=== PATIENT | male | born 1955 | race Caucasian/White ===

== ENCOUNTER 2016-06-11 14:34 | Inpatient (IN) | payer BC ==
--- NOTE | ~2016-06-11 | PN ---
Unit #: [id number] #: [id number] Patient: NINFA HO [id number] [facility] [address] [place] [address] [id number] MR#: [id number] NAME: NINFA HO. ROOM: 74 Age: 60 Sex: M Admission Date: 06/11/2016 : 1955 Attending Physician: Robyn Santana M.D. Admitting Physician: Robyn Santana M.D. Primary Care Physician: Primary Care Physician Halle SOL NOTES DATE OF SERVICE: 06/17/2016 SUBJECTIVE Mr. Ho is a 60-year-old white male with alcohol dependence and mood disorder, who was seen today and chart was reviewed, and case was discussed with the staff. He has been anxious, withdrawn, though has not shown any agitation, irritability, and has been cooperative with treatment recommendation and has been taking the medications and tolerating them fairly well with no reported side effects. MENTAL STATUS EXAMINATION An elderly white male who was casually dressed with fair personal hygiene, appears to be in no acute distress or discomfort. He was awake and alert with intact orientation. His mood was anxious with a congruent affect. He denies any suicidal or homicidal ideation. His insight and judgment remain slightly impaired. TREATMENT PLAN 1. We will continue him on his current medications and treatment protocol. We will monitor his response to medications and make further adjustments as needed. 2. We will continue to follow up. Dictated by... Keke De Santiago/demetrius TD: 06/17/2016 13:29 JOB #: [id number] RIKA PROGRESS NOTES Page 1 of 1 X Robyn Santana MD PROGRESS NOTE
--- NOTE | ~2016-06-11 | PA ---
Unit #: [id number] #: [id number] Patient: NINFA MAS [id number] [facility] [address] [place] [address] [id number] I MR#: [id number] NAME: NINFA MAS. ROOM: [facility] Age: 60 Sex: M Admission Date: 06/11/2016 : 1955 Date of Assessment: Attending Physician: Robyn Santana M.D. Admitting Physician: Robyn Santana M.D. Primary Care Physician: Primary Care Physician No PSYCHIATRIC ASSESSMENT DATE OF SERVICE 06/11/2016. IDENTIFYING DATA Mr. Mas is a 60-year-old single white male, who is a resident of [place], [place] and was self-referred to the hospital on a voluntary basis. CHIEF COMPLAINT "I need to detox from alcohol." HISTORY OF PRESENT ILLNESS Mr. Mas is a 60-year-old white male with a long history of alcohol dependence, who was self-referred to the hospital and stated that he wanted to get detox from alcohol and that he has been drinking a pint and several beers a day for many years with minimal period of sobriety. He reports his last drink was last night and reports having a tremor. Upon presentation, he had a blood alcohol level of 0.075. He does report increasing depression, anxiety, irritability, restlessness, significant consequences because of his addiction leading to increasing stressors and feelings of hopelessness and helplessness, but denies any suicidal ideations, intent, or plan. SUBSTANCE ABUSE HISTORY The patient reports alcohol to be his drug of choice and has been drinking since he was 17 years old and currently has been drinking a pint and several beers on a daily basis. He denies any other drug abuse. PAST PSYCHIATRIC HISTORY The patient has had a history of inpatient chemical dependency treatment at [facility] as well as [facility]. Review of the medical records indicate that currently he is not active in any treatment program, is not seeing a psychiatrist, is not taking any psychotropic medications. PAST MEDICAL HISTORY Hypertension. ALLERGIES No known medication allergies. PERSONAL AND SOCIAL HISTORY A 60-year-old white male who reports that he is single and unemployed, and lives alone and has poor social support system. Unit #: [id number] #: [id number] Patient: NINFA MAS MENTAL STATUS EXAMINATION An elderly white male, who was casually dressed with fair personal hygiene, appears to be in no acute distress or discomfort. He was awake and alert on interaction with intact orientation to time, place, and person. His mood was anxious and depressed with a congruent affect. Speech was slow and restricted in content. His thought processes were disorganized with some looseness of associations. He denies any suicidal or homicidal ideations, and also denies any auditory or visual hallucinations. His insight and judgment remain significantly impaired. DIAGNOSTIC IMPRESSION Psychiatric: Alcohol dependence, moderate and acute withdrawals; alcohol-induced mood disorder. Medical: Hypertension. Stressors: Moderate psychosocial stressors. TREATMENT PLAN 1. The patient has presented with a history of substance abuse and mood disorder, and has been decompensating and will need inpatient hospitalization for detoxification, safety, and stabilization. We will start him on detox protocol. We will closely monitor for any worsening withdrawal symptoms. 2. Supportive therapy was provided to the patient. 3. Safe, structured, and nourishing environment will be provided. ESTIMATED LENGTH OF STAY 4 to 5 days. ABILITY TO HELP SELF Limited. WILLINGNESS TO HELP SELF The patient appears to be willing to help self. STRENGTHS 1. Communicative. 2. Cooperative. PROBLEMS 1. Chronic dysphoric symptoms. 2. Chronic chemical dependency. 3. Poor social support system. DISCHARGE CRITERIA This will be contingent upon the patient's ability to go through detox without having any significant withdrawal symptoms and his ability to stay safe to himself, particularly after discharge from the hospital. Dictated by... Keke De Santiago/demetrius TD: 06/12/2016 06:43 JOB #: [id number] Unit #: [id number] #: [id number] Patient: NINFA MAS PSYCHIATRIC ASSESSMENT Page 1 of 1 X Robyn Santana MD PSYCHIATRIC ASSESSMENT
--- NOTE | ~2016-06-11 | PN ---
Unit #: [id number] #: [id number] Patient: NINFA HO [id number] [facility] [address] [place] [address] [id number] MR#: [id number] NAME: NINFA HO. ROOM: [facility] Age: 60 Sex: M Admission Date: 06/11/2016 : 1955 Attending Physician: Robyn Santana M.D. Admitting Physician: Robyn Santana M.D. Primary Care Physician: Primary Care Physician Halle MELÉNDEZ PROGRESS NOTES DATE 06/13/2016 DISCUSSION Mr. Ho is a 60-year-old white male with alcohol dependence and mood disorder who was seen today and chart was reviewed and case was discussed with the staff. He has been anxious, withdrawn and in acute delirium tremens and has been maintained on one-to-one level of precautions due to confusion and disorientation and constantly wandering, out of touch with reality and having significant difficulties following directions. Meanwhile, he has been taking medications and tolerating them fairly well with no reported side effects. MENTAL STATUS EXAMINATION An elderly white male who was casually dressed with fair personal hygiene and appears to be in no acute distress or discomfort. He was awake and alert with impaired attention and concentration. His mood was anxious with congruent affect. His speech is slow and restricted in content. He denies any suicidal or homicidal ideation. His insight and judgement remains significantly impaired. TREATMENT PLAN Will continue his current medications and level of precautions and will monitor his response to the medications and make further adjustments as needed. Dictated by... Keke De Santiago/yana TD: 06/13/2016 17:27 JOB #: [id number] Unit #: [id number] #: [id number] Patient: NINFA HO RIKA PROGRESS NOTES Page 1 of 1 X Robyn Santana MD PROGRESS NOTE
--- NOTE | ~2016-06-11 | HP ---
Unit #: [id number] #: [id number] Patient: NINFA MAS [id number] [place] [address] [id number] I MR#: [id number] NAME: NINFA MAS. ROOM: [facility] Age: 60 Sex: M Admission Date: 06/11/2016 : 1955 Attending Physician: Robyn Santana M.D. Admitting Physician: Robyn Santana M.D. Primary Care Physician: Primary Care Physician No HISTORY AND PHYSICAL HISTORY OF PRESENT ILLNESS Ninfa is a 60-year-old admitted to [facility] because of his abuse of alcohol. He is detoxing. PAST MEDICAL HISTORY 1. Long history of alcohol abuse. 2. High blood pressure. PAST SURGICAL HISTORY Nothing reported. ALLERGIES No known drug allergies SOCIAL HISTORY Smokes one pack per day. Drinks at least a pint, plus "several beers" on a daily basis. Denies illicit drug use. FAMILY HISTORY Medically noncontributory. REVIEW OF SYSTEMS CONSTITUTIONAL: No fever or chills. HEENT: Denies any sore throat, ear pain or runny nose. CARDIOVASCULAR: Denies chest pain, irregular heart rhythm or palpitations. CHEST: Denies shortness of breath or cough. No hemoptysis. GASTROINTESTINAL: Denies nausea, vomiting, diarrhea or chronic constipation. ENDOCRINE: Denies history of increased thirst or urination. No recent significant weight loss or gain. GENITOURINARY: Denies dysuria, frequency, or hematuria. SKIN: Denies any rashes. HEMATOLOGIC: Denies history of increased bleeding or bruising. MUSCULOSKELETAL: Denies any hot, swollen joints. No generalized muscle pain. NEUROLOGIC: Denies problems with vision or speech. No frequent, severe headaches. No numbness, tingling or weakness in any extremities. Denies loss of bladder or bowel control. CURRENT MEDICATIONS 1. Detox protocol 2. Hydrochlorothiazide 25 mg daily 3. Acupril 20 mg daily Unit #: [id number] #: [id number] Patient: NINFA MAS PHYSICAL EXAMINATION GENERAL: Alert, well-nourished, no apparent distress. VITAL SIGNS: Blood pressure 138/94, heart rate 80, respirations 16, temperature 98.6. WEIGHT: 156. HEIGHT: 5 feet 9 inches. SKIN: Warm and dry without rash or lesion. HEENT: Normocephalic. TMs not viewed. Oral and nasal passages clear. Conjunctivae clear. PERRLA. EOMs intact. NECK: Supple without lymphadenopathy or thyromegaly. HEART: Regular rate and rhythm without murmur. LUNGS: Clear. ABDOMEN: Soft, nontender. : Not done. EXTREMITIES: No evidence of cyanosis, clubbing or edema. Moves all without focal deficit. NEUROLOGICAL: Grossly within normal limits. Cranial Nerves: II: Visual freeman are intact. III, IV AND : Extraocular movements are intact. Pupils are equal, round and reactive to light. V: Facial sensation is grossly normal. VII: Facial movements and expression are normal. VIII: Auditory acuity grossly intact. IX, X: Uvula is midline. Phonation is normal. XI: Patient shrugs shoulders and turns head normally. XII: Tongue protrudes in the midline. Sensory and Motor Function: Sensory and motor sensation is grossly normal. Motor: moves all extremities well. Coordination: Gait is normal. Deep Tendon Reflexes: Intact. MEDICAL ASSESSMENT AND PLAN Psychiatric admission. RECOMMENDATIONS 1. Psychiatric, per psychiatrist. 2. Medical, I see no contraindications to participating in facility's activities. MEDICAL PROGNOSIS Good. MEDICAL CONDITION Stable. Dictated by... Thomas Rosa/josse TD: 06/12/2016 19:52 JOB #: [id number] Unit #: [id number] #: [id number] Patient: NINFA MAS HISTORY AND PHYSICAL Page 1 of 1 X Elba Velázquez HISTORY AND PHYSICAL
--- NOTE | ~2016-06-11 | PN ---
Unit #: [id number] #: [id number] Patient: NINFA HO [id number] [facility] [address] [place] [address] [id number] I MR#: [id number] NAME: NINFA HO. ROOM: 74 Age: 60 Sex: M Admission Date: 06/11/2016 : 1955 Attending Physician: Robyn Santana M.D. Admitting Physician: Robyn Santana M.D. Primary Care Physician: Primary Care Physician Halle MELÉNDEZ PROGRESS NOTES DATE June 16, 2016 DISCUSSION Mr. Ho is a 60-year-old white male, with alcohol dependence, who was seen today and chart was reviewed and the case was discussed with the staff. He remains anxious, withdrawn, and rather disorganized and unsteady on his feet as we tried to have him walk in front of me, he was wobbly and had some confusion and not knowing what he is going to do outside of here. Meanwhile, he has been taking the medications and tolerating them fairly well with no reported side effects. MENTAL STATUS EXAMINATION An elderly white male, who was casually dressed with fair personal hygiene and appears to be in no acute distress or discomfort. He was awake and alert with impaired attention and concentration. His mood is anxious with a congruent affect. He denies any suicidal or homicidal ideations. His insight and judgment remain slightly impaired. TREATMENT PLAN 1. We will continue him on his current medications and treatment protocol, and will monitor his response, and make further adjustments as needed. 2. We will continue to followup. Dictated by... Keke D eSantiago/john TD: 06/16/2016 09:25 JOB #: [id number] Unit #: [id number] #: [id number] Patient: NINFA HO PEALIANET PROGRESS NOTES Page 1 of 1 X Robyn Santana MD PROGRESS NOTE
--- NOTE | ~2016-06-11 | PN ---
Unit #: [id number] #: [id number] Patient: NINFA MAS [id number] [facility] [address] [place] [address] [id number] MR#: [id number] NAME: NINFA MAS. ROOM: 74 Age: 60 Sex: M Admission Date: 06/11/2016 : 1955 Attending Physician: Robyn Santana M.D. Admitting Physician: Robyn Santana M.D. Primary Care Physician: Primary Care Physician No RAMONACE PROGRESS NOTES DATE OF SERVICE 06/15/2016 DISCUSSION Mr. Mas is a 60-year-old white male who was seen today. Chart was reviewed and case was discussed with the staff. He remains anxious, withdrawn, and seclusive to himself, was going through detox and appears to be making some progress. However, still has been maintained on falls precautions due to the recurrent falls. MENTAL STATUS EXAMINATION An elderly white male who is casually dressed with fair personal hygiene, appears to be in no acute distress or discomfort. He was awake and alert on interaction with intact orientation. His mood is anxious with a congruent affect. He denies any suicidal or homicidal ideations. His insight and judgment remain slightly impaired. TREATMENT PLAN 1. We will continue him on his current medications and treatment protocol. We will monitor his response to the medications and make further adjustments as needed. 2. We will continue to follow up. Dictated by... Robyn Santana M.D. IAA/bzg TD: 06/15/2016 13:19 JOB #: [id number] [facility] PROGRESS NOTES Page 1 of 1 X Robyn Santana MD PROGRESS NOTE
--- NOTE | ~2016-06-11 | PN ---
Unit #: [id number] #: [id number] Patient: NINFA HO [id number] [facility] [address] [place] [address] [id number] MR#: [id number] NAME: NINFA HO. ROOM: 74 Age: 60 Sex: M Admission Date: 06/11/2016 : 1955 Attending Physician: Robyn Santana M.D. Admitting Physician: Robyn Santana M.D. Primary Care Physician: Primary Care Physician Halle SOL NOTES DATE 06/18/2016 DISCUSSION Mr. Ho is a 60-year-old, white male with alcohol dependence who was seen today and chart was reviewed and case was discussed with the staff. He has been anxious, withdrawn, seclusive to himself though appears to be doing somewhat better and has been to show clearing of his cognitive functioning and able to carry on better conversation. His blood workup shows elevated liver enzymes which is inconsistent with his alcoholic hepatitis. MENTAL STATUS EXAM An elderly white male who was casually dressed with fair personal hygiene, appears to be in no acute distress or discomfort. He was awake and alert on interaction with intact orientation. His mood was anxious with congruent affect. He denies any suicidal or homicidal ideation. His insight and judgement remains slightly impaired. TREATMENT PLAN 1. We will continue him on his current treatment protocol. We will monitor his response to the medication and make further adjustments as needed. 2. We will continue to follow up. Dictated by... Keke De Santiago/tyler TD: 06/19/2016 05:29 JOB #: [id number] Unit #: [id number] #: [id number] Patient: NINFA HO RIKA PROGRESS NOTES Page 1 of 1 X Robyn Santana MD PROGRESS NOTE
--- NOTE | ~2016-06-11 | DS ---
Unit #: [id number] #: [id number] [facility]: [facility] MAS [id number] [facility] [address] [place] [address] [id number] I MR#: [id number] NAME: NINFA MAS. ROOM: [facility] Age: 60 Sex: M Admission Date: 06/11/2016 : 1955 Discharge Date: 06/20/2016 Attending Physician: Robyn Santana M.D. Primary Care Physician: Primary Care Physician No DISCHARGE SUMMARY IDENTIFYING DATA Mr. Mas is a 60-year-old white male, who is a resident of [place], [place] and was self-referred to the hospital on a voluntary basis. DISCHARGE DIAGNOSES Psychiatric: Alcohol dependence, moderate, in acute withdrawals; alcohol-induced mood disorder. Medical: Hypertension. Stressors: Moderate psychosocial stressors. HISTORY OF PRESENT ILLNESS Please see initial psychiatric evaluation for details. PAST PSYCHIATRIC HISTORY Please see initial psychiatric evaluation for details. PAST MEDICAL HISTORY Please see initial psychiatric evaluation for details. HOSPITAL COURSE The patient was admitted to the adult chemical dependency unit at [facility] and was oriented to the hospital environment. Routine p.r.n. medications were initiated, and he was started back on his home medications and alcohol detox protocol was initiated as well. However, the patient did end up going into delirium tremens and had a rather complicated course of stay, and as such, medications were maintained and he was closely monitored. He was taking the medications regularly and was tolerating them fairly well and was unable to come out of the detox without any complications and was willing to continue treatment on an outpatient basis, and as such, it was decided that he will be discharged home and will continue treatment on an outpatient basis. DISCHARGE MEDICATIONS None. DISCHARGE CONDITION Stable. PROGNOSIS Fair. Dictated by... Robyn Santana M.D. Unit #: [id number] #: [id number] Patient: NINFA MAS IAA/modl TD: 06/20/2016 22:09 JOB #: [id number] DISCHARGE SUMMARY Page 1 of 1 X Robyn Santana MD DISCHARGE SUMMARY
--- NOTE | ~2016-06-11 | PN ---
Unit #: [id number] #: [id number] Patient: NINFA HO [id number] [facility] [address] [place] [address] [id number] MR#: [id number] NAME: NINFA HO. ROOM: [facility] Age: 60 Sex: M Admission Date: 06/11/2016 : 1955 Attending Physician: Robyn Santana M.D. Admitting Physician: Robyn Santana M.D. Primary Care Physician: Primary Care Physician Halle MELÉNDEZ PROGRESS NOTES DATE June 14, 2016 DISCUSSION Mr. Ho is a 60-year-old white male, with alcohol dependence, who was seen today and chart was reviewed and the case was discussed with the staff. The patient is anxious and withdrawn, and unsteady on his feet, as part of his alcohol detox and has been having repeat falls and fell yesterday and though he has not seriously injured himself, but he keeps on having falls and he has been put on falls precaution and wheelchair has been provided for him, as well. He has been taking the medications and tolerating them fairly well with no reported side effects. MENTAL STATUS EXAMINATION An elderly white male, who was casually dressed with fair personal hygiene and appears to be in slight distress and discomfort. He was awake and alert on interaction with impaired attention and concentration. His mood is anxious with a congruent affect. His speech is slow and restricted in content. He denies any suicidal or homicidal ideations, and also denies any auditory or visual hallucinations. His insight and judgment remain slightly impaired. TREATMENT PLAN 1. We will continue him on his current medications and detox protocol and will monitor his response to the medications, and make further adjustments as needed. 2. We will continue to followup. Dictated by... Keke De Santiago/john TD: 06/14/2016 10:43 JOB #: [id number] Unit #: [id number] #: [id number] Patient: NINFA HO RIKA PROGRESS NOTES Page 1 of 1 X Robyn Santana MD X PROGRESS NOTE
--- NOTE | ~2016-06-11 | PN ---
Unit #: [id number] #: [id number] Patient: NINFA MAS [id number] [facility] [address] [place] [address] [id number] MR#: [id number] NAME: NINFA MAS. ROOM: [facility] Age: 60 Sex: M Admission Date: 06/11/2016 : 1955 Attending Physician: Robyn Santana M.D. Admitting Physician: Robyn Santana M.D. Primary Care Physician: Halle Primary Care Physician RIKA PROGRESS NOTES DATE 06/11/2016 DISCUSSION Mr. Mas is a 60-year-old white male who was seen today and chart was reviewed, and case was discussed with the staff. He has been anxious, withdrawn, and rather seclusive to himself. Meanwhile, he has in distress and discomfort as he is actively detoxing, though has been taking medication and tolerating them fairly well. MENTAL STATUS EXAMINATION An elderly white male who was casually dressed with fair personal hygiene, appears to be in no acute distress or discomfort. He is awake and alert impaired attention and concentration. His mood is anxious with a congruent affect. Speech is slow and restricted in content. His thought processes were disorganized with some looseness of associations. He denies any suicidal or homicidal ideation. He insight and judgment remain significantly impaired. TREATMENT PLAN 1. Continue him on his current detox protocol. Also maintain him on fall precaution, as patient already has had a fall yesterday and appears to be unsteady on his feet. 2. Supportive therapy was provided to the patient. 3. Will continue to followup. Dictated by... Keke De Santiago/destini TD: 06/12/2016 08:19 JOB #: [id number] Unit #: [id number] #: [id number] Patient: NINFA MAS PEALIANET PROGRESS NOTES Page 1 of 1 X Robyn Santana MD PROGRESS NOTE
[2016-06-12 09:34] LABS: BASOPHIL# 0.1 X10e3 (0-0.3); BASOPHIL% 1.3 % (0-2.5); EOSINOPHIL% 0.5 % (0.0-7.0); HEMATOCRIT 39.2 % (38.0-50.0); LYMPHOCYTE# 0.8 X10e3 (1.0-3.5); LYMPHOCYTE% 17.5 % (17.0-45.0); MEAN CELL VOLUME 90.6 FL (83-96); MEAN CORPUSCULAR HGB CONC 33.1 g/dL (30-36); MEAN PLATELET VOLUME 9.1 FL (6.5-11.5); MONOCYTE# 0.8 X10e3 (0-1.0); MONOCYTE% 17.7 % (3.0-12.0); NEUTROPHIL# 2.8 X10e3 (1.5-7.1); PLATELET COUNT 137 X10e3 (140-420); RED BLOOD COUNT 4.33 X10e (3.90-5.60); RED CELL DISTRIBUTION WIDTH 17.8 % (11.0-15.5); WHITE BLOOD COUNT 4.5 X10e3 (4.0-10.5)
[2016-06-12 09:37] LABS: DIFF IND NO
[2016-06-12 09:46] LABS: ALBUMIN SERUM 4.4 g/dL (3.5-5.0); BILIRUBIN,TOTAL 1.3 mg/dL (0.2-2.0); CALCIUM SERUM 10.4 mg/dL (8.4-10.2); CREATININE SERUM 0.8 mg/dL (0.6-1.4); GLOM FILT RATE Estimated 96.5 mL/min (>60); POTASSIUM 3.7 mmol/L (3.5-5.1); PROTEIN TOTAL SERUM 7.5 g/dL (6.0-8.3)
[2016-06-12 12:39] LABS: URINE APPEARANCE TURBID; URINE BLOOD TRACE (NEG); URINE COLOR DK YELLOW; URINE GLUCOSE NEG (NEG); URINE KETONE 2+ (NEG); URINE LEUKOCYTE ESTERASE NEG (NEG); URINE NITRATE NEG (NEG); URINE PH 6.5 (5-8); URINE PROTEIN 2+ (NEG); URINE SPECIFIC GRAVITY 1.025 (1.003-1.035)
[2016-06-12 12:43] LABS: URINE BACTERIA AUWI NEG (NEGATIVE); URINE SQUAMOUS EPITHELIAL CELL OCC /[HPF]; UWBCS1 AUWI 0-2 (0-5)
[2016-06-12 13:03] LABS: U HYALINE CASTS AUWI 0-2 /[LPF]; URINE AMORPHOUS SEDIMENT AMORP URATES; URINE BILIRUBIN NEG (NEG); URINE MUCUS PRESENT
[2016-06-12 13:04] LABS: URBCS1 AUWI 0-2 /[HPF] (0-2)
[2016-06-12 13:10] LABS: AMPHETAMINE NEG (NEG); BARBITURATES NEG (NEG); BENZODIAZEPINES NEG (NEG); COCAINE NEG (NEG); MARIJUANA NEG (NEG); OPIATES NEG (NEG); TRICYCLIC ANTIDEPRESSANTS NEG (NEG); U METHADONE NEG (NEG)
== END 2016-06-20 09:30 | disposition home or self-care (01) | DRG 897 ==
LOC: P1E 14:34
PROVIDERS: Psychiatry & Neurology Psychiatry
PROC: HZ2ZZZZ Detoxification Services for Substance Abuse Treatment (ICD-10-PCS; principal; 2016-06-11)
DX: F10.239 Alcohol dependence with withdrawal, unspecified (principal); F10.24 Alcohol dependence with alcohol-induced mood disorder; I10 Essential (primary) hypertension; F17.210 Nicotine dependence, cigarettes, uncomplicated; Z56.0 Unemployment, unspecified
CPT/HCPCS: 80053; 80307; 81003; 85025; 86592